=== PATIENT | male | born 1955 | race Caucasian/White ===

== ENCOUNTER → 2018-08-02 | Outpatient (CLI) | payer OTHER | END | disposition home or self-care (01) | LOC: CFH 14:01 | PROVIDERS: ATTEND Internal Medicine Cardiovascular Disease | DX: R94.31 Abnormal electrocardiogram [ECG] [EKG] (principal); R06.02 Shortness of breath; I10 Essential (primary) hypertension | CPT/HCPCS: 93306 ==

== ENCOUNTER 2018-08-13 18:17 | Emergency (ER) | payer OTHER ==
[~2018-08-13] VITALS: Ht 182.9 cm; Wt 97.7 kg
[2018-08-13 18:54] LABS: MICROSCOPIC AUTO
[2018-08-13 18:57] LABS: CULTURE INDICATED? NO
--- NOTE | 2018-08-13 19:11 | NUR ---
PT TO ROOM FROM LOBBY
--- NOTE | 2018-08-13 19:27 | NUR ---
PT PRESENTS TO ED WITH C/O LEFT FLANK PAIN RADIATING TO LEFT LOWER ABD AND DARK URINE STARTING THIS AM, HX KIDNEY STONES. PT A&O, RESPS EVEN AND UNLABORED, SPEAKING IN FULL SENTENCES. PT TAKEN TO CT AT THIS TIME.
--- NOTE | 2018-08-13 19:35 | NUR ---
PT BACK FROM CT, PT ATTACHED TO BP AND SPO2 MONITORS. AWAITING LAB/CT RESULTS AND DISPO.
[2018-08-13 19:55] LABS: BASOPHILS # (AUTO) 0.04 x10^3/uL (0-0.1); BASOPHILS % (AUTO) 1 % (0-1); EOSINOPHILS # (AUTO) 0.15 x10^3/uL (0-0.4); EOSINOPHILS % (AUTO) 2 % (1-7); LYMPHOCYTES # (AUTO) 1.36 x10^3/uL (1-3.4); LYMPHOCYTES % (AUTO) 17 % (22-44); MD NO; MEAN CORPUSCULAR HEMOGLOBIN 33.9 pg (27.5-34.5); MEAN CORPUSCULAR VOLUME 99.7 fL (81-97); MEAN PLATELET VOLUME 9.1 fL (7.4-10.4); MONOCYTES # (AUTO) 0.72 x10^3/uL (0.2-0.8); MONOCYTES % (AUTO) 9 % (2-9); NEUTROPHILS # (AUTO) 5.58 x10^3/uL (1.8-6.8); NEUTROPHILS % (AUTO) 71 % (42-75); PLATELET COUNT 201 x10^3/uL (130-400); RED BLOOD COUNT 5.18 x10^6/uL (4.38-5.82); RED CELL DISTRIBUTION WIDTH 15.4 % (9.4-14.8)
[2018-08-13] MEDS ORDERED: TAMSULOSIN 0.4 MG CAP.ER.24H PO ONE (20:30)
--- NOTE | 2018-08-13 20:31 | NUR ---
[facility] notified bp still hypertensive 160/110.
[2018-08-13] MEDS ORDERED: TAMSULOSIN 0.4 MG CAP.ER.24H ONE (20:44)
[2018-08-13 21:25] VITALS: BP 149/110
--- NOTE | 2018-08-13 21:26 | NUR ---
[facility] NOTIFIED REPEAT BP 149/110, [facility] OK'D DC. PT GIVEN DC INSTRUCTIONS AND SCRIPT, PT GIVEN URINE STRAINERS AND INSTRUCTIONS TO FOLLOW UP WITH CLINICAL TRIALS SYSTEMS ADMINISTRATOR. PT EDUCATED REGARDING RX FOR NORCO, ZOFRAN AND FLOMAX. PT AMB TO DC DESK WITH STEADY GAIT, NADN AT DC.
== END 2018-08-13 21:29 | disposition home or self-care (01) ==
LOC: ED 19:21
DX: N20.0 Calculus of kidney (principal); N28.9 Disorder of kidney and ureter, unspecified; I10 Essential (primary) hypertension
CPT/HCPCS: 36415; 74176; 80047; 81001; 85025; 99284